=== PATIENT | female | born 1945 | race African-American/Black ===

== ENCOUNTER 2020-04-02 11:49 | Emergency (ER) | payer MEDICARE, OTHER ==
[2020-04-05 14:50] LABS: SARS-CoV-2 MS2 Positive; SARS-CoV-2 N Gene Negative; SARS-CoV-2 S Gene Negative; SARS-CoV-2 orf1ab Negative
== END 2020-04-02 12:20 | disposition home or self-care (01) ==
LOC: NAV ERS 11:49
DX: R53.83 Other fatigue (principal); Z20.828 Contact with and (suspected) exposure to other viral communicable diseases; E03.9 Hypothyroidism, unspecified; E78.5 Hyperlipidemia, unspecified; I10 Essential (primary) hypertension; Z79.899 Other long term (current) drug therapy; Z79.84 Long term (current) use of oral hypoglycemic drugs
CPT/HCPCS: 87635; 99283; U0003